=== PATIENT | female | born 1950 | race African-American/Black ===

== ENCOUNTER 2017-04-30 18:14 | Emergency (ER) | payer OTHER ==
[2017-04-30 18:25] VITALS: BP 139/85; PULSE 66; TEMP 98.5; BMI 29.2
--- NOTE | 2017-04-30 19:30 | PDOC ---
History of Present Illness - General History Source: Patient Exam Limitations: No Limitations - History of Present Illness Initial Comments: 04/30/17 20:13 The patient is a 66 year old female, with a significant past medical history of HTN, High Cholesterol, Pre Diabetes, who presents to the emergency department s/ p fall that occurred thursday. Patient reports walking when she tripped and landed on left knee. She reports left knee pain secondary to fall. Patient reports being able to bear weight on knee immediately after fall and states she did not seeking medical attention immediately. She reports applying ice and bengay with minimal relief. Patient reports taking motrin and advil for left knee pain with slight relief. Denies chest pain, shortness of breath, headache and dizziness. Denies fever, chills, nausea, vomit, diarrhea and constipation. Denies hitting of head, Loss of consciousness. Allergies: Shellfish Past surgical history: Hysterectomy (27 years old), Coronary transplant (Right 5 years) (Left 4 years). Social history: No smoking. No alcohol. No illicit drugs. PCP: None <Mike White - Last Filed: 04/30/17 20:12> <Leigh Higginbotham - Last Filed: 04/30/17 21:28> - General Chief Complaint: Injury Stated Complaint: KNEE PAIN S/P FALL ON THURSDAY Time Seen by Provider: 04/30/17 18:25 Past History <Mike White - Last Filed: 04/30/17 20:12> - Past Medical History Anemia: No Asthma: No Cancer: No Cardiac Disorders: No CVA: No COPD: No CHF: No Dementia: No Diabetes: Yes (NIDD) GI Disorders: Yes (DIVERTICULOSIS) Disorders: No HTN: Yes Hypercholesterolemia: Yes Liver Disease: No Seizures: No Thyroid Disease: No - Surgical History Abdominal Surgery: No Appendectomy: No Cardiac Surgery: No Cholecystectomy: No Lung Surgery: No Neurologic Surgery: No Orthopedic Surgery: No - Suicide/Smoking/Psychosocial Hx Smoking Status: No Smoking History: Never smoked Have you smoked in the past 12 months: No Number of Cigarettes Smoked Daily: 0 Information on smoking cessation initiated: No Hx Alcohol Use: No Drug/Substance Use Hx: No Substance Use Type: None Hx Substance Use Treatment: No <Leigh Higginbotham - Last Filed: 04/30/17 21:28> - Past Medical History Allergies/Adverse Reactions: Allergies Allergy/AdvReac Type Severity Reaction Status Date / Time shellfish derived Allergy Verified 04/30/17 18:22 Home Medications: Ambulatory Orders Polyethylene Glycol 3350 [Miralax] 17 gm PO DAILY PRN #1 powd.pack 11/01/11 Amlodipine Besylate [Norvasc -] 10 mg PO DAILY 11/03/11 Aspirin [Aspirin EC] 81 mg PO DAILY 11/29/14 Ibuprofen [Motrin -] 400 mg PO TID #21 tablet 11/29/14 Losartan Potassium 50 mg PO DAILY 11/29/14 Metformin HCl [Glucophage -] 500 mg PO BID 11/29/14 Atorvastatin Ca [Lipitor] 20 mg PO HS 12/07/15 Brimonidine Tartrate [Alphagan 0.15% -] 1 drop OD DAILY 12/07/15 Cetirizine HCl [Zyrtec -] 10 mg PO DAILY PRN 12/07/15 Epinephrine (Epi-Pen 0.3MG) [Epipen 0.3MG -] 0.3 mg SCJ ASDIR 12/07/15 Mag Carb/Al Hydrox/Alginic AC [Gaviscon Liquid] 355 ml PO Q4H PRN #0 oral.susp 12/07/15 Omeprazole 20 mg PO DAILY 12/07/15 Prednisolone 1% Ophthalmic [Pred Forte 1% -] 1 drop OP TID 12/07/15 Cholecalciferol (Vitamin D3) [Vitamin D3] 1,000 unit PO DAILY 04/30/17 Dimenhydrinate [Dramamine] 50 mg PO ASDIR 04/30/17 Hydrochlorothiazide [Hctz -] 25 mg PO DAILY 04/30/17 Review of Systems - Review of Systems Able to Perform ROS?: Yes Comments:: 04/30/17 20:13 GENERAL/CONSTITUTIONAL: No fever or chills. No weakness. HEAD, EYES, EARS, NOSE AND THROAT: No change in vision. No ear pain or discharge. No sore throat. CARDIOVASCULAR: No chest pain or shortness of breath. RESPIRATORY: No cough, wheezing, or hemoptysis. GASTROINTESTINAL: No nausea, vomiting, diarrhea or constipation. GENITOURINARY: No dysuria, frequency, or change in urination. MUSCULOSKELETAL: +Left knee pain. No joint or muscle swelling or pain. No neck or back pain. SKIN: No rash NEUROLOGIC: No headache, vertigo, loss of consciousness, or change in strength/ sensation. ENDOCRINE: No increased thirst. No abnormal weight change. HEMATOLOGIC/LYMPHATIC: No anemia, easy bleeding, or history of blood clots. ALLERGIC/IMMUNOLOGIC: No hives or skin allergy. All Other Systems: Reviewed and Negative <Mike White - Last Filed: 04/30/17 20:12> *Physical Exam - Vital Signs Last Vital Signs Temp Pulse Resp BP Pulse Ox 98.5 F 66 16 139/85 99 04/30/17 18:14 04/30/17 18:14 04/30/17 18:14 04/30/17 18:14 04/30/17 18:14 - Physical Exam Comments: 04/30/17 20:13 GENERAL: Awake, alert, and fully oriented, in no acute distress HEAD: No signs of trauma EYES: PERRLA, EOMI, sclera anicteric, conjunctiva clear ENT: Auricles normal inspection, hearing grossly normal, nares patent, oropharynx clear without exudates. Moist mucosa NECK: Normal ROM, supple, no lymphadenopathy, JVD, or masses LUNGS: Breath sounds equal, clear to auscultation bilaterally. No wheezes, and no crackles HEART: Regular rate and rhythm, normal S1 and S2, no murmurs, rubs or gallops CHEST: No external ecchymosis on chest. No chest wall tenderness. ABDOMEN: Soft, nontender, normoactive bowel sounds. No guarding, no rebound. No masses EXTREMITIES: +Left knee full ROM. +Healing ecchymosis. +Small affusion and cilial plateau tenderness. Normal range of motion, no edema. No clubbing or cyanosis. No cords, erythema, or tenderness NEUROLOGICAL: Cranial nerves II through XII grossly intact. Normal speech, normal gait SKIN: Warm, Dry, normal turgor, no rashes or lesions noted. <Mike White - Last Filed: 04/30/17 20:12> - Vital Signs Last Vital Signs Temp Pulse Resp BP Pulse Ox 98.5 F 66 16 139/85 99 04/30/17 18:14 04/30/17 18:14 04/30/17 18:14 04/30/17 18:14 04/30/17 18:14 <Leigh Higginbotham - Last Filed: 04/30/17 21:28> Medical Decision Making - Medical Decision Making 04/30/17 21:22 Pt presents to the ED complaining of knee pain and bilateral lower chest pain after fall. Denies other injuries. Xray of the knee and chest checked to rule out fractures and are negative. Will discharge home. <Leigh Higginbotham - Last Filed: 04/30/17 21:28> *DC/Admit/Observation/Transfer - Attestations Scribe Attestion: 04/30/17 20:13 Documentation prepared by Mike White, acting as medical genetics director for Leigh Higginbotham MD. <Mike White - Last Filed: 04/30/17 20:12> - Discharge Dispostion Admit: No <Leigh Higginbotham - Last Filed: 04/30/17 21:28> Diagnosis at time of Disposition: Contusion, knee Qualifiers: Encounter type: initial encounter Laterality: left Qualified Code(s): S80.02XA - Contusion of left knee, initial encounter; S80.02XA - Contusion of left knee, initial encounter - Discharge Dispostion Disposition: HOME Condition at time of disposition: Good - Patient Instructions Printed Discharge Instructions: DI for Knee Sprain Additional Instructions: return to the ED for chest pain or shortness of breath, new or changing symptoms. Return for severe knee pain or swelling, unable to bend knee.
[2017-04-30] MEDS ORDERED: IBUPROFEN 600 MG TABLET (FP) PO ONE ×2 (21:18→21:23)
== END 2017-04-30 21:34 | disposition home or self-care (01) ==
LOC: FER 18:14
DX: S80.02XA Contusion of left knee, initial encounter (principal); W18.39XA Other fall on same level, initial encounter; Y93.89 Activity, other specified; Y92.9 Unspecified place or not applicable; E11.9 Type 2 diabetes mellitus without complications; I10 Essential (primary) hypertension; E78.00 Pure hypercholesterolemia, unspecified
CPT/HCPCS: 71020-TC; 73562-TC-LT; 99282-25

== ENCOUNTER 2021-04-07 08:57 | Observation (INO) | payer OTHER ==
[2021-04-07 09:11] VITALS: BMI 28.6
[2021-04-07 10:17] LABS: BASO % 0.8 % (0-2.0); EOS % 6.1 % (0-4.5); HEMATOCRIT 36.8 % (32.4-45.2); HEMOGLOBIN 12.5 GM/dL (10.7-15.3); LYMPH % 31.6 % (8-40); MCH 30.1 pg (25.7-33.7); MCHC 34.1 g/dl (32.0-36.0); MEAN CELL VOLUME 88.3 fl (80-96); MEAN PLT VOLUME 7.2 fl (7.5-11.1); MONO % 6.3 % (3.8-10.2); NEUT % 55.2 % (42.8-82.8); PLATELET COUNT 234 10^3/uL (134-434); RBC 4.17 M/mm3 (3.60-5.2); RDW 14.2 % (11.6-15.6); WHITE BLOOD COUNT 4.3 K/mm3 (4.0-10.0)
[2021-04-07 10:44] LABS: CHLORIDE 105 mmol/L (98-107); SODIUM 140 mmol/L (136-145)
[2021-04-07 10:46] LABS: ALBUMIN 3.6 g/dl (3.4-5.0); ANION GAP 8 MMOL/L (8-16); BLOOD UREA NITROGEN 26.7 mg/dL (7-18); CALCIUM 9.3 mg/dL (8.5-10.1); CO2 27 mmol/L (21-32); GLUCOSE,RANDOM 125 mg/dL (74-106)
[2021-04-07 10:47] LABS: MAGNESIUM 2.1 mg/dL (1.8-2.4)
[2021-04-07 10:49] LABS: SGOT/AST 24 U/L (15-37); SGPT/ALT 27 U/L (13-61)
[2021-04-07 10:50] LABS: CREATININE 1.1 mg/dL (0.55-1.3)
[2021-04-07 10:51] LABS: BILIRUBIN,TOTAL 0.3 mg/dL (0.2-1); TOT PROT 7.7 g/dl (6.4-8.2)
[2021-04-07 10:52] LABS: ALK PHOS 65 U/L (45-117)
[2021-04-07] MEDS ORDERED: ACETAMINOPHEN 1000 MG/100 ML VIAL (NON FORMULARY) IVPB ONE (11:10)
[2021-04-07] MEDS ORDERED: SODIUM CHLORIDE 0.9% 500 ML INFUS.BAG IV ONE (11:11)
[2021-04-07] MEDS ORDERED: ACETAMINOPHEN INJECTION 100 ML IVPB ONE (11:14)
[2021-04-07] MEDS: prednisoLONE ACETATE 1% OPHTH SUSP 5 ML BOTTLE OD SCH (22:16)
[2021-04-07] MEDS: INSULIN SLIDING SCALE (NOVOLOG) 1 VIAL SQ SCH (22:16)
[2021-04-07] MEDS ORDERED: ENOXAPARIN NA (PORCINE) 40 MG/0.4 ML DISP.SYRIN SQ ONE (22:19)
[2021-04-07] MEDS ORDERED: ACETAMINOPHEN 325 MG TABLET (FP) ONE (22:19)
[2021-04-07] MEDS: ENOXAPARIN NA (PORCINE) 40 MG/0.4 ML DISP.SYRIN SQ SCH (22:23)
[2021-04-07] MEDS: ACETAMINOPHEN 325 MG TABLET (FP) PO PRN (22:23)
[2021-04-08] MEDS: prednisoLONE ACETATE 1% OPHTH SUSP 5 ML BOTTLE OD SCH ×3 (06:13→21:13)
[2021-04-08] MEDS: INSULIN SLIDING SCALE (NOVOLOG) 1 VIAL SQ SCH ×4 (06:13→21:14)
[2021-04-08 07:05] LABS: HEMATOCRIT 36.7 % (32.4-45.2); HEMOGLOBIN 12.4 GM/dL (10.7-15.3); MCH 29.8 pg (25.7-33.7); MCHC 33.8 g/dl (32.0-36.0); MEAN CELL VOLUME 88.2 fl (80-96); MEAN PLT VOLUME 7.6 fl (7.5-11.1); PLATELET COUNT 222 10^3/uL (134-434); RBC 4.16 M/mm3 (3.60-5.2); RDW 14.3 % (11.6-15.6)
[2021-04-08 07:27] LABS: ALBUMIN 3.3 g/dl (3.4-5.0); BLOOD UREA NITROGEN 20.8 mg/dL (7-18); MAGNESIUM 2.3 mg/dL (1.8-2.4)
[2021-04-08 07:30] LABS: PHOSPHOROUS 3.4 mg/dL (2.5-4.9)
[2021-04-08 07:31] LABS: CREATININE 0.9 mg/dL (0.55-1.3)
[2021-04-08 07:32] LABS: BILIRUBIN,TOTAL 0.3 mg/dL (0.2-1); TOT PROT 7.3 g/dl (6.4-8.2)
[2021-04-08] MEDS ORDERED: amLODIPine BESYLATE 5 MG TABLET (FP) ONE (10:24)
[2021-04-08] MEDS ORDERED: LOSARTAN POTASSIUM 50 MG TABLET ONE (10:25)
[2021-04-08] MEDS: LOSARTAN POTASSIUM 50 MG TABLET PO SCH (10:52)
[2021-04-08] MEDS: ENOXAPARIN NA (PORCINE) 40 MG/0.4 ML DISP.SYRIN SQ SCH (10:52)
[2021-04-08] MEDS: amLODIPine BESYLATE 5 MG TABLET (FP) PO SCH (10:53)
[2021-04-08] MEDS: DEXTROSE 5%-0.45% SALINE 1,000 ML IV SCH (11:03)
[2021-04-08] MEDS ORDERED: ACETAMINOPHEN 325 MG TABLET (FP) PO ONE (16:17)
[2021-04-08] MEDS ORDERED: ACETAMINOPHEN 325 MG TABLET (FP) ONE (18:05)
[2021-04-09] MEDS: ACETAMINOPHEN 325 MG TABLET (FP) PO PRN (06:42)
[2021-04-09] MEDS ORDERED: PT OWN MED DRAWER 7, Y5N ONE (06:50)
[2021-04-09] MEDS: INSULIN SLIDING SCALE (NOVOLOG) 1 VIAL SQ SCH ×4 (06:53→21:50)
[2021-04-09] MEDS: prednisoLONE ACETATE 1% OPHTH SUSP 5 ML BOTTLE OD SCH ×3 (06:53→21:51)
[2021-04-09 08:23] LABS: HEMOGLOBIN 12.5 GM/dL (10.7-15.3); MCH 29.4 pg (25.7-33.7); MCHC 33.7 g/dl (32.0-36.0); MEAN CELL VOLUME 87.2 fl (80-96); MEAN PLT VOLUME 7.2 fl (7.5-11.1); PLATELET COUNT 232 10^3/uL (134-434); RBC 4.25 M/mm3 (3.60-5.2); RDW 14.1 % (11.6-15.6); WHITE BLOOD COUNT 4.2 K/mm3 (4.0-10.0)
[2021-04-09 08:51] LABS: BLOOD UREA NITROGEN 12.9 mg/dL (7-18); CALCIUM 9.2 mg/dL (8.5-10.1)
[2021-04-09 08:54] LABS: CREATININE 0.7 mg/dL (0.55-1.3)
[2021-04-09] MEDS: LOSARTAN POTASSIUM 50 MG TABLET PO SCH (10:13)
[2021-04-09] MEDS: ENOXAPARIN NA (PORCINE) 40 MG/0.4 ML DISP.SYRIN SQ SCH (10:13)
[2021-04-09] MEDS: amLODIPine BESYLATE 5 MG TABLET (FP) PO SCH (10:13)
[2021-04-09] MEDS: SODIUM CHLORIDE 1,000 ML IV SCH (12:25)
[2021-04-09] MEDS: DEXTROSE 5%-0.45% SALINE 1,000 ML IV SCH (12:26)
[2021-04-09] MEDS: BRIMONIDINE TARTRATE 0.15% OPHTHALMIC 5 ML BOTTLE OD SCH ×2 (15:02→21:50)
[2021-04-10] MEDS: BRIMONIDINE TARTRATE 0.15% OPHTHALMIC 5 ML BOTTLE OD SCH ×2 (06:54→13:03)
[2021-04-10] MEDS: INSULIN SLIDING SCALE (NOVOLOG) 1 VIAL SQ SCH ×2 (06:55→12:00)
[2021-04-10] MEDS: prednisoLONE ACETATE 1% OPHTH SUSP 5 ML BOTTLE OD SCH ×2 (06:55→13:03)
[2021-04-10 08:20] LABS: HEMATOCRIT 34.7 % (32.4-45.2); HEMOGLOBIN 11.6 GM/dL (10.7-15.3); MCH 29.3 pg (25.7-33.7); MCHC 33.5 g/dl (32.0-36.0); MEAN CELL VOLUME 87.3 fl (80-96); MEAN PLT VOLUME 7.1 fl (7.5-11.1); PLATELET COUNT 211 10^3/uL (134-434); RBC 3.97 M/mm3 (3.60-5.2); RDW 14.3 % (11.6-15.6); WHITE BLOOD COUNT 3.9 K/mm3 (4.0-10.0)
[2021-04-10 08:43] LABS: BLOOD UREA NITROGEN 13.8 mg/dL (7-18); CALCIUM 8.6 mg/dL (8.5-10.1)
[2021-04-10 08:46] LABS: CREATININE 0.6 mg/dL (0.55-1.3)
[2021-04-10 08:48] LABS: BILIRUBIN,TOTAL 0.3 mg/dL (0.2-1); TOT PROT 6.8 g/dl (6.4-8.2)
[2021-04-10 09:02] VITALS: BP 128/79; PULSE 64; TEMP 98.7
[2021-04-10] MEDS: ENOXAPARIN NA (PORCINE) 40 MG/0.4 ML DISP.SYRIN SQ SCH (09:06)
[2021-04-10] MEDS: LOSARTAN POTASSIUM 50 MG TABLET PO SCH (09:07)
[2021-04-10] MEDS: amLODIPine BESYLATE 5 MG TABLET (FP) PO SCH (09:07)
[2021-04-10] MEDS: DEXTROSE 5%-0.45% SALINE 1,000 ML IV SCH (13:02)
[2021-04-10] MEDS: SODIUM CHLORIDE 1,000 ML IV SCH (13:03)
== END 2021-04-10 17:34 | disposition home health service (06) ==
LOC: JER 08:57 → JERBED 16:28 → J4S 04-08 20:33
PROVIDERS: ADMIT Internal Medicine; ATTEND Internal Medicine
PROC: 3E033NZ Introduction of Analgesics, Hypnotics, Sedatives into Peripheral Vein, Percutaneous Approach (ICD-10-PCS; principal; 2021-04-07)
PROC: 3E023GC Introduction of Other Therapeutic Substance into Muscle, Percutaneous Approach (ICD-10-PCS; 2021-04-07)
PROC: 3E0337Z Introduction of Electrolytic and Water Balance Substance into Peripheral Vein, Percutaneous Approach (ICD-10-PCS; 2021-04-07)
DX: R55 Syncope and collapse (principal); E78.00 Pure hypercholesterolemia, unspecified; K57.92 Diverticulitis of intestine, part unspecified, without perforation or abscess without bleeding; R51.9 Headache, unspecified; E11.9 Type 2 diabetes mellitus without complications; H54.7 Unspecified visual loss; Z91.013 Allergy to seafood; I10 Essential (primary) hypertension; Z29.9 Encounter for prophylactic measures, unspecified; Z94.9 Transplanted organ and tissue status, unspecified
CPT/HCPCS: 36415; 70450-TC; 70496-TC; 70551-TC; 71045-TC-FY; 80048; 80053; 82550; 82553; 82962; 83036; 83735; 84100; 84443; 84484; 85025; 85027; 93005; 93010; 93306-TC; 96361; 96372; 96374; 97116-GP; 97162-GP; 99285-25; C9803; G0378; J0131; Q9967; U0003; U0005